=== PATIENT | female | born 1995 | race Caucasian/White ===

== ENCOUNTER 2019-05-29 19:42 | Emergency (ER) | payer MEDICAID, SELFPAY ==
--- NOTE | ~2019-05-29 | CT_ITS ---
EXAMINATION: CT abdomen pelvis w con EXAM DATE: 05/29/2019 20:35 INDICATION: Right upper quadrant pain, right flank pain. TECHNIQUE: Spiral CT of the abdomen and pelvis was performed following intravenous injection of 100 m L Omnipaque 350. Axial, coronal and sagittal images were reviewed. The dose-length product (DLP) fo r this examination was 426.68 mGy-cm. The exposure was tailored according to patient size (auto mA e xposure control), and iterative reconstruction (ASIR) was used as additional dose reduction technique . Comparison is made to prior examination from 12/10/2018. FINDINGS: The liver, spleen, adrenal glands and pancreas are unremarkable. Gallbladder is unremarkab le. No biliary obstruction. Portal and splenic veins are patent. Kidneys enhance symmetrically. T here is no hydronephrosis. The prostate is unremarkable. The bladder is unremarkable. There is no retroperitoneal or pelvic lymphadenopathy. The appendix is not positively visualized. There is no pericecal inflammatory change to suggest appe ndicitis. The stomach and small bowel are unremarkable. There is expected amount of colonic stool. No free intraperitoneal gas. The heart is normal in size. There are no pericardial or pleural e ffusions. The lung bases are unremarkable. The bones are unremarkable. IMPRESSION: 1. No acute intra-abdominal findings. Reviewed, dictated and finalized at location A.
[2019-05-29 19:50] VITALS: BP 137/82; PULSE 80; RESP 18; O2SAT 97
[2019-05-29 20:05] LABS: Basophils Percent Auto 0.3 % (0.2-1.2); Eosinophils Absolute Auto 0.1 K/mm3 (0-0.3); Eosinophils Percent Auto 0.5 % (0-4.4); Hematocrit 45.5 % (37.0-47.0); Hemoglobin 15.1 g/dL (12.0-15.0); Immature Granulocyte Absolute 0.03 K/mm3 (0.00-0.031); Immature Granulocyte Percent A 0.3 % (0-0.5); Lymphocytes Absolute Auto 3.85 K/mm3 (0.9-3.2); Mean Corpuscular HGB Conc 33.2 g/dl (32-36); Mean Corpuscular Hemoglobin 30.7 pg (26-34); Mean Corpuscular Volume 92.5 fl (80-100); Mean Platelet Volume 10.4 fl (7.4-10.4); Monocytes Absolute Auto 0.9 K/mm3 (0.1-0.6); Neutrophils Absolute Auto 6.4 K/mm3 (1.3-6.7); Neutrophils Percent Auto 56.9 % (45.5-73.1); Platelet Count Result 317 k/mm3 (150-375); Red Blood Count 4.92 M/mm3 (4.2-5.4); Red Cell Distribution Width 12.5 % (11.5-14.5); White Blood Count 11.3 K/mm3 (4.5-10.0)
[2019-05-29 20:16] LABS: Alanine Aminotransferase 15 U/L (4-35); Albumin Level 5.2 g/dL (3.5-5.1); Alkaline Phosphatase 60 U/L (38-126); Aspartate Amino Transferase 25 U/L (14-36); Bilirubin,Total 0.7 mg/dL (0.2-1.3); Blood Urea Nitrogen 12 mg/dL (7-17); Calcium 9.8 mg/dL (8.4-10.2); Carbon Dioxide 28 mmol/L (22-30); Chloride 103 mmol/L (98-107); Estimated CRCL calculation 99 ml/min; Estimated Glomerular Filt Rate > 60; Glucose 107 mg/dL (65-105); Lipase 67 U/L (23-300); Potassium 4.2 mmol/L (3.4-5.0); Sodium 141 mmol/L (137-145)
--- NOTE | 2019-05-29 20:25 | ED.ABDPAIN ---
HPI - Abdominal Pain General Chief Complaint: Abdominal Pain Stated Complaint: abd pain/gall stones Time Seen by Provider: 05/29/19 19:55 Source: patient Mode of arrival: ambulatory Limitations: no limitations History of Present Illness HPI narrative: 24 yo female who presents with c/o right upper abdominal pain. Patient reports she has had constant pain in right upper abdomen for 8 hours. Her pain is associated with nausea and diarrhea. She has hot flashes with pain but denies fever. She also denies vomiting . She states she tried some of her grandmother's prescribed narcotic pain medication without relief. She reports experiencing similar pain this past fall and she was told that she had gallstones. She reports having reoccurring pain over that past few weeks. She has been unable to obtain follow up due to insurance issues. MD elicited complaint: abdominal pain Pertinent past history: gastritis Onset (ago): week(s) Pain Consistency: intermittent Location: RUQ Severity: severe Pain scale (0-10): 10 Radiation: R flank Migration to: R flank Relieving factors: eating Associated symptoms: nausea, diarrhea and fever Treatments prior to arrival: prescription analgesics Related Data Home Medications Medication Instructions Recorded Confirmed docusate sodium [DOK] PO 05/29/19 tramadol mg 05/29/19 Allergies Allergy/AdvReac Type Severity Reaction Status Date / Time amoxicillin Allergy Unknown Swelling Verified 05/29/19 19:56 of Lip/Tongue/Throat clavulanic acid Allergy Unknown Unknown Verified 05/29/19 19:56 kiwi Allergy Unknown Anaphylaxis Verified 05/29/19 19:56 Review of Systems Review of Systems: All systems reviewed & are unremarkable except as noted in HPI and below Constitutional: Constitutional: Denies chills, Reports excessive sweating and Denies fever(s) Gastrointestinal: Gastrointestinal: Reports abdominal pain, Denies constipation, Reports diarrhea, Reports nausea and Denies vomiting Genitourinary: Genitourinary: Denies hematuria, Reports nocturia, Reports urinary hesitancy and Reports urinary urgency Musculoskeletal: Musculoskeletal: Reports back pain [facility] Surgical History Surgical History (Updated 05/29/19 @ 20:33 by Sweta Garcia MD) Hx of appendectomy Hx of tonsillectomy Social History Social History Gender identity (if verbalized by the patient): Female Comments surgical history includes bilateral orchiectomies Exam Const: General: alert Orientation/consciousness: patient oriented x3 Eyes: Pupils: Equal, round and reactive pupils present EOM: EOMs intact bilaterally Chest: Chest palpation & inspection: normal inspection of the chest Resp: Effort & Inspection: normal respiratory effort, no retractions and no use of accessory muscles Auscultation: clear to auscultation bilaterally Cardio: Rate: regular rate Rhythm: regular rhythm Heart sounds: no murmurs GI: GI Palp: Yes Soft to palpation, Yes Tenderness to palpation present (GI) (RUQ, epigastric), No Guarding due to palpation present (GI), No Rigid due to palpation and No Hernia present : General: Yes CVA tenderness on the right Skin: General skin exam: normal color Rashes: no rashes Neuro: General: patient oriented x3 and moves all extremities Course Reevaluation(s) Reevaluation #1: Patient reports she has some improvement with pain. I have discussed CT and labs . She does have gallstone on bedside ultrasound of gallbladder. Date: 05/29/19 Time: 21:25 Reevaluation #2: Patient states her pain is much improved after bentyl and toradol. Date: 05/29/19 Time: 22:32 Consultations Consultation #1: I discussed case with Dr. Mora of general surgery. He agrees to follow up with patient and help to further evaluation gallbladder disease. He does not recommend antibiotics at this time. Date: 05/29/19 Time: 22:31 Vital Signs Vital signs: Vital Signs Pulse Rate 80 05/29/19 19:50 Resp
[2019-05-29 20:32] LABS: Add Urine Microscopic? YES; Appearance Urine Clear (Clear); Bilirubin Urine Negative (Negative); Blood Urine 1+ (Negative); Color Urine Yellow (Yellow); Glucose Urine UA Negative (Negative); Ketones Urine Trace mg/dL (Negative); Leukocyte Esterase Ur Negative LEU/UL (Negative); Mucus Urine Rare /lpf; Nitrate Urine Negative (Negative); Protein Urine Negative (Negative); Specific Grav Ur 1.021 (1.001-1.035); Squamous Epithelial Cell Urine Moderate /hpf (Few); WBC Urine 0-3 /hpf
[2019-05-29] MEDS: LACTATED RINGERS 1,000 ML 999 ML IV CONT (20:43)
[2019-05-29] MEDS: ONDANSETRON INJ 4 MG/2 ML VIAL IV PUSH (20:44)
[2019-05-29] MEDS: HYDROMORPHONE HCL 1 MG/ML INJ IV PUSH (20:45)
[2019-05-29 20:54] VITALS: BP 115/80; PULSE 66; RESP 16; O2SAT 100
[2019-05-29] MEDS: KETOROLAC 30 MG/ML VIAL (*BKC) IV PUSH (21:45)
[2019-05-29] MEDS: DICYCLOMINE HCL INJ 20 MG/2 ML VIAL IM (21:46)
[2019-05-29 22:28] VITALS: BP 122/74; PULSE 82; RESP 18; O2SAT 98
[2019-05-29 22:58] VITALS: BP 130/82; PULSE 82; RESP 18; TEMP 36.8; O2SAT 98
== END 2019-05-29 23:01 | disposition home or self-care (01) ==
PROVIDERS: Emergency Medicine; Emergency Provider General Practice
DX: K80.20 Calculus of gallbladder without cholecystitis without obstruction (principal)
CPT/HCPCS: 36415; 74177; 80053; 81001; 81025; 83690; 85025; 96361; 96372; 96374; 96375; 99284; J0500; J1170; J1885; J2405; J7120; Q9967

== ENCOUNTER 2019-06-07 07:50 | Outpatient (CLI) | payer MEDICAID, SELFPAY ==
--- NOTE | ~2019-06-07 | NM_ITS ---
EXAMINATION: NM hepatobiliary w pharm DATE: 06/07/2019 10:44 INDICATION: Right upper quadrant abdominal pain COMPARISON: None. TECHNIQUE: 5.15 mCi Tc-99m mebrofenin (Choletec) was administered intravenously. Scintigraphic image s of the abdomen were obtained for one hour. 1.5 mcg sincalide (Kinevac) was administered by slow int ravenous infusion, and imaging was continued for 30 minutes. Gallbladder ejection fraction was calcul ated by the technologist. FINDINGS: There is normal clearance of radiotracer from the blood pool. There is homogeneous tracer uptake by t he liver. Activity progresses to the gallbladder and bowel. The gallbladder ejection fraction (GBEF) is 57% (normal 10-90%, but most patient with gallbladder dysfunction have GBEF < 35% which does over lap with the normal range). IMPRESSION: 1. Normal hepatobiliary scan. Reviewed, dictated and finalized at location A.
== END 2019-06-07 07:51 | disposition home or self-care (01) ==
PROVIDERS: Visit Provider Surgery
DX: R10.11 Right upper quadrant pain (principal)
CPT/HCPCS: 76705; 78227; A9537; J2805

== ENCOUNTER 2019-06-07 11:58 | Outpatient (CLI) | payer MEDICAID, SELFPAY ==
--- NOTE | ~2019-06-07 | US_ITS ---
EXAMINATION: US right upper quadrant DATE: 06/07/2019 12:28 INDICATION: Right upper quadrant pain TECHNIQUE: Multiple grayscale and Doppler ultrasound images of the abdomen were obtained. COMPARISON: 09/07/2016 FINDINGS: The head and and body of the pancreas are normal. The pancreatic tail is obscured by bowel gas. The liver is normal with normal echogenicity and echotexture. No surface nodularity. Normal hepa topetal flow in the main portal vein. Stones are present in the nondistended gallbladder. There is no gallbladder wall thickening or pericholecystic fluid. The normal common bile duct measures 3 mm. The re was no sonographic Lassiter sign. IMPRESSION: 1. Cholelithiasis without additional findings of acute cholecystitis. Reviewed, dictated and finalized at location A.
== END 2019-06-07 11:59 | disposition home or self-care (01) ==
PROVIDERS: Visit Provider Surgery
DX: R19.01 Right upper quadrant abdominal swelling, mass and lump (principal); K80.20 Calculus of gallbladder without cholecystitis without obstruction
CPT/HCPCS: 76705

== ENCOUNTER 2019-06-11 00:23 | Day surgery (SDC) | payer MEDICAID, OTHER, SELFPAY ==
[2019-06-08 16:00] VITALS: BMI 28.0
[2019-06-11] VITALS (11 sets, daily range): BP systolic 98–132; BP diastolic 67–93; PULSE 11–86; RESP 12–20; TEMP 36.2–36.5; O2SAT 98–100
--- NOTE | ~2019-06-11 | XR_ITS ---
EXAMINATION: XR cholangiogram surg 1st inj DATE: 06/11/2019 08:41 INDICATION: Cholelithiasis. TECHNIQUE: 15 fluoroscopic images of the right upper quadrant were obtained during intraoperative cho langiography performed by the surgeon. I was not present in the operating room. Fluoroscopy exposure time was 22 seconds. COMPARISON: CT abdomen and pelvis 05/29/2019 FINDINGS: There is a catheter in the cystic duct. The biliary tree is normal in caliber. No choledoch olithiasis. Contrast passes to the duodenum. IMPRESSION: 1. Normal intraoperative cholangiogram. Reviewed, dictated and finalized at location A.
[2019-06-11] MEDS: LACTATED RINGERS 1,000 ML 30 ML IV CONT ×3 (06:55→10:31)
--- NOTE | 2019-06-11 07:15 | WPDHPUPDATE1 ---
History and Physical Update Update Date/Time: 06/11/19 07:15 History and Physical has been reviewed, including an updated exam of the patient. There are NO changes in the patient's condition. Risks, benefits, and alternatives of a laparoscopic cholecystectomy, possible intra-operative cholangiogram, possible open cholecystectomy have been discussed and questions answered. Patient agrees to proceed with procedure.
--- NOTE | 2019-06-11 07:19 | WPDANESEPPF ---
Anes - Initial Pre Proc Eval Procedure: Operation Date: 06/11/19 07:30 Proposed Procedures p Laparoscopic Cholecystectomy With Intraoperative Cholangiogram, Possible Open - Jb Mora MD Date/Time: 06/11/19 07:19 Surgeon: Jb Mora MD Pre Op Diagnosis: Gall Stones Patient Data Age: 24 Gender: F Height: 5 ft 6 in Weight: 78.05 kg Allergies Allergy/AdvReac Type Severity Reaction Status Date / Time amoxicillin Allergy Unknown Swelling Verified 06/08/19 16:23 of Lip/Tongue/Throat clavulanic acid Allergy Unknown Unknown Verified 06/08/19 16:23 kiwi Allergy Unknown Anaphylaxis Verified 06/08/19 16:23 Home Medications Medication Instructions Recorded Confirmed Type famotidine [Pepcid] 20 mg PO DAILY #20 tablet 05/29/19 06/08/19 Rx dicyclomine 10 mg PO BID 06/08/19 06/08/19 History Laboratory Tests 06/11/19 06:47 Sodium Pending Potassium Pending Chloride Pending Carbon Dioxide Pending BUN Pending Creatinine Pending Estim Creat Clear Calc Pending Estimated GFR Pending Glucose Pending Calcium Pending Total Bilirubin Pending Direct Bilirubin Pending AST Pending ALT Pending Alkaline Phosphatase Pending Total Protein Pending Albumin Pending Amylase Pending Lipase Pending Patient hx anesthesia problems: post op nausea/vomiting Family hx anesthesia problems: none PMFSH Past Medical History Medical History Asthma Depression Kidney stones POTS (postural orthostatic tachycardia syndrome) Surgical History Surgical History History of ear surgery History of esophagogastroduodenoscopy (EGD) History of evacuation of hematoma Hx of appendectomy Hx of tonsillectomy Status post radical unilateral orchiectomy bilateral Family History Family History Father Diabetes mellitus Mother Heart disease Hypoglycemia Lupus Sibling Hypoglycemia Heart disease S/P cholecystectomy Unknown Diabetes mellitus Heart disease Hypertension Cerebrovascular accident Cancer Nervous disorder Allergic Social History Social History Smoking status: Never smoker Alcohol intake: never Additional occupation/education comments: marketing Gender identity (if verbalized by the patient): Transgender Female Anes - Eval Final PreProcedure Day of Procedure 06/11/19 07:19 Patient weight: overweight Heart: regular rate and rhythm Lungs: clear to auscultation Airway: Mallampati scale class 1 Neurological: alert and oriented Last oral intake: >/= 8 hours ASA classification: III Emergent: no Anesthetic plan: proceed Anesthesia type and monitoring: general ETT and standard monitoring Informed Consent: The patient's anesthetic plan and its attendant risks and benefits were discussed with the patient/family/POA. Questions were solicited and answers provided to the satisfaction of the patient/family/POA.
[2019-06-11 07:22] LABS: Alanine Aminotransferase 23 U/L (4-35); Albumin Level 4.6 g/dL (3.5-5.1); Alkaline Phosphatase 60 U/L (38-126); Amylase 67 U/L (30-110); Aspartate Amino Transferase 18 U/L (14-36); Bilirubin,Total 1.1 mg/dL (0.2-1.3); Blood Urea Nitrogen 10 mg/dL (7-17); Calcium 9.2 mg/dL (8.4-10.2); Carbon Dioxide 29 mmol/L (22-30); Chloride 103 mmol/L (98-107); Estimated CRCL calculation 98 ml/min; Estimated Glomerular Filt Rate > 60; Glucose 96 mg/dL (65-105); Lipase 62 U/L (23-300); Potassium 3.8 mmol/L (3.4-5.0); Sodium 140 mmol/L (137-145)
[2019-06-11] MEDS: SCOPOLAMINE 1.5 MG PATCH TRANSDERM (07:30)
[2019-06-11] MEDS: CLINDAMYCIN 900 MG/NS 50 ML 900 MG/50 ML PIGGYBACK 50 MG IVPB (07:36)
[2019-06-11] MEDS: BUPIVACAINE/EPINEPHRINE 0.5% 30 ML VIAL INFILTRATE (07:36)
--- NOTE | 2019-06-11 09:18 | PM.PROC ---
Procedure Note - Detailed Date of procedure: 06/11/19 Pre-op diagnosis: Gall Stones Chronic cholecystitis with cholelithiasis Post-op diagnosis: same Procedure performed: Laparoscopic cholecystectomy with intraoperative cholangiogram. Description of procedure: Procedure Details: Patient was seen preoperatively in the holding area and risks, benefits and alternatives confirmed. Patient was taken to the operating room and general anesthesia was induced. A time out was then preformed with the surgery team confirming patient and site of surgery. The abdomen was prepped and draped in the usual sterile fashion. Incision was made just below the umbilicus. Two stay sutures of O- Vicryl were used to elevate the mid-line fascia beneath the umbilicus and a small incision was made under direct vision. The peritoneum was entered. The 12 mm Gr cannula was introduced under direct vision. First under low flow and then under high flow the abdomen was insufflated with carbon dioxide never exceeding a pressure of 14. Three 5 mm trocars were then introduced under direct vision. The following trocars were introduced under direct vision: a 5 mm in the epigastrium and two 5 mm trocars along the right costal margin. There were some omental adhesions to the gallbladder. These were taken down with sharp dissection without difficulty. The gall bladder was grasped and the cystic duct and artery were dissected free and clipped with an 5 mm endo-clip mold changer. A small hole was made in the cystic duct with endoshears and a cholagio-cath introduced. A cholangiogram was obtained revealing free flow into the cystic duct, common bile duct, common hepatic, right and left hepatic ducts with free flow into the duodenum with no filling defects in the intra nor extrahepatic biliary tree and no dilation. It was noted that the ampulla of Vater appeared to be at more at the junction of the 3rd and 4th portion of the duodenum rather than in the 2nd portion of the duodenum. See radiology report. The catheter was removed and the cystic duct was clipped with a 5 mm endoclip-mold changer. The cystic duct was then transected. The cystic artery was also transected at this point. The gall bladder was removed using electrocautery and then removed using a large 10 mm grasper via the umbilical incision. The trocars were removed visualizing hemostasis and the remaining gas evacuated. The large trocar site at the umbilicus was closed with an 0 vicryl figure of 8 suture. The 2 stay sutures mentioned above on either side of the fascia were also tied together to help approximate this midline fascia. Further local anesthetic was placed into each incision for postop pain control. The skin incisions were closed with a subcuticular of 4-0 Monocryl. Surgical glue then was applied to all the incisions. Patient tolerated the procedure well was taken to the recovery room in good condition. Anesthesia: GETA Surgeon: Jb Mora MD Gas Furnace Installer: VICTOR HUGO Leonardo, OR 1st assist Estimated blood loss (mL): 7 Drains: No Packing: No Pathology: yes (The gallbladder) Complications: No immediate complications Condition: stable Disposition: PACU
--- NOTE | 2019-06-11 09:21 | SUR.OPER ---
ebl:[id number]
[2019-06-11] MEDS: ONDANSETRON INJ 4 MG/2 ML VIAL IV PUSH (09:51)
--- NOTE | 2019-06-11 11:23 | SUR.PHASEII ---
1006- SCOPOLAMINE PATCH IN PLACE
--- NOTE | 2019-06-11 12:55 | SUR.PHASEII ---
1225 Pt states she is no longer nauseous; and ready to go home
== END 2019-06-11 12:46 | disposition home or self-care (01) ==
PROVIDERS: Visit Provider Surgery
PROC: 0FT44ZZ Resection of Gallbladder, Percutaneous Endoscopic Approach (ICD-10-PCS; CPT 47562; principal; 2019-06-11 07:30)
DX: K80.10 Calculus of gallbladder with chronic cholecystitis without obstruction (principal); J45.909 Unspecified asthma, uncomplicated; I49.8 Other specified cardiac arrhythmias; F32.9 Major depressive disorder, single episode, unspecified
CPT/HCPCS: 47562; 36415; 74300; 80053; 82150; 82248; 83690; 88304; A9270; J0131; J1200; J2001; J2250; J2405; J2704; J3010; J7120; Q9966

== ENCOUNTER 2019-06-22 12:50 | Outpatient (CLI) | payer MEDICAID, SELFPAY ==
[2019-06-22 13:45] LABS: Alanine Aminotransferase 108 U/L (4-35); Albumin Level 4.8 g/dL (3.5-5.1); Alkaline Phosphatase 79 U/L (38-126); Aspartate Amino Transferase 66 U/L (14-36); Bilirubin,Total 0.6 mg/dL (0.2-1.3); Blood Urea Nitrogen 10 mg/dL (7-17); CRP 1.7 mg/dL (<1.0); Calcium 9.4 mg/dL (8.4-10.2); Carbon Dioxide 30 mmol/L (22-30); Chloride 101 mmol/L (98-107); Estimated Glomerular Filt Rate > 60; Glucose 98 mg/dL (65-105); Lipase 62 U/L (23-300); Potassium 4.4 mmol/L (3.4-5.0); Sodium 139 mmol/L (137-145)
== END 2019-06-22 12:51 | disposition home or self-care (01) ==
PROVIDERS: Visit Provider Surgery
DX: K21.9 Gastro-esophageal reflux disease without esophagitis (principal)
CPT/HCPCS: 36415; 80053; 83690; 86140

== ENCOUNTER 2019-06-25 13:48 | Outpatient (CLI) | payer MEDICAID, SELFPAY ==
[2019-06-25 14:05] LABS: Basophils Absolute Auto 0.1 K/mm3 (0.0-0.1); Basophils Percent Auto 0.8 % (0.2-1.2); Eosinophils Absolute Auto 0.3 K/mm3 (0-0.3); Hematocrit 43.9 % (37.0-47.0); Hemoglobin 14.6 g/dL (12.0-15.0); Immature Granulocyte Absolute 0.02 K/mm3 (0.00-0.031); Immature Granulocyte Percent A 0.2 % (0-0.5); Lymphocytes Percent Auto 36.2 % (18.3-44.2); Mean Corpuscular HGB Conc 33.3 g/dl (32-36); Mean Corpuscular Hemoglobin 30.7 pg (26-34); Mean Corpuscular Volume 92.4 fl (80-100); Monocytes Absolute Auto 0.6 K/mm3 (0.1-0.6); Monocytes Percent Auto 6.1 % (2.6-8.5); Neutrophils Absolute Auto 4.9 K/mm3 (1.3-6.7); Neutrophils Percent Auto 53.7 % (45.5-73.1); Platelet Count Result 347 k/mm3 (150-375); Red Blood Count 4.75 M/mm3 (4.2-5.4); Red Cell Distribution Width 12.4 % (11.5-14.5); White Blood Count 9.1 K/mm3 (4.5-10.0)
== END 2019-06-25 13:49 | disposition home or self-care (01) ==
PROVIDERS: Visit Provider Surgery
DX: K80.64 Calculus of gallbladder and bile duct with chronic cholecystitis without obstruction (principal)
CPT/HCPCS: 36415; 85025

== ENCOUNTER 2019-12-12 10:47 | Emergency (ER) | payer BC, SELFPAY ==
[2019-12-12] VITALS (8 sets, daily range): BP systolic 102; BP diastolic 73; PULSE 68–100; RESP 13–20; O2SAT 97–100
--- NOTE | ~2019-12-12 | XR_ITS ---
EXAMINATION: XR chest 1V portable DATE: 12/12/2019 11:29 INDICATION: Shortness of breath. COVID 19 positive. TECHNIQUE: frontal view of the chest was obtained. COMPARISON: Chest radiograph dated 10/05/2007 FINDINGS: The lungs remain clear with no focal airspace opacities, pulmonary edema, pleural effusion or pneumot horax. The cardiomediastinal silhouette is normal. Visualized bones and soft tissues are unremarkable . IMPRESSION: 1. No acute cardiopulmonary disease. Reviewed, dictated and finalized at location B.
--- NOTE | 2019-12-12 11:00 | ECG_ITS ---
Measurements Intervals [place] Rate: 75 P: 58 DE: 139 QRS: 60 QRSD: 90 T: 45 QT: 356 QTc: 399 Interpretive Statements SINUS RHYTHM BASELINE ARTIFACT- I, II, III, AVR, AVL, AVF, V1-V2 NORMAL ECG Electronically Signed On 12-12-2019 12:52:04 CDT by Raulito Valdes D.O.
--- NOTE | 2019-12-12 11:17 | ED.GENADULT ---
HPI - General Adult General Chief complaint: Shortness of Breath/Dyspnea Stated complaint: COVID+, feeling SOB Time Seen by Provider: 12/12/19 11:16 Source: patient Mode of arrival: ambulatory Limitations: no limitations History of Present Illness HPI narrative: Patient is 24 years old white female with a recent diagnosis of COVID-19 1 week ago presents to the ED complaining that her symptoms are not improving, still feeling weak, tired, dizzy, shortness of breath on exertion, chest pressure going to her neck. Patient reports that her fever and chills are resolved few days ago. History of asthma on albuterol. Patient denies smoking, drinking or using drugs. Patient lives with her grandma who is Covid negative Related Data Allergies Allergy/AdvReac Type Severity Reaction Status Date / Time amoxicillin Allergy Unknown Swelling Verified 12/12/19 11:25 of Lip/Tongue/Throat clavulanic acid Allergy Unknown Unknown Verified 12/12/19 11:25 kiwi Allergy Unknown Anaphylaxis Verified 12/12/19 11:25 Review of Systems Review of Systems: Narrative: CONSTITUTIONAL: Denies fever, chills, or sweats. Generalized weakness EYES: Denies visual changes, redness, or discharge. ENT: Denies rhinorrhea, congestion, sore throat, or otalgia. CARDIOVASCULAR: Denies chest pain, palpitations, or edema. RESPIRATORY: Denies cough or dyspnea. GASTROINTESTINAL: Denies abdominal pain, nausea, vomiting, or diarrhea. GENITOURINARY: Denies dysuria or hematuria. SKIN: Denies rash or itching. MUSCULOSKELETAL: Generalized body aches, general weakness NEUROLOGIC: Weakness PSYCHIATRIC: Denies anxiety or depression. [facility] Past Medical History Medical History (Updated 12/12/19 @ 12:41 by Jermaine Bacon MD) Asthma Depression Kidney stones POTS (postural orthostatic tachycardia syndrome) Surgical History Surgical History History of ear surgery History of esophagogastroduodenoscopy (EGD) History of evacuation of hematoma Hx of appendectomy Hx of tonsillectomy Status post radical unilateral orchiectomy bilateral Family History Family History Father Diabetes mellitus Mother Heart disease Hypoglycemia Lupus Sibling Hypoglycemia Heart disease S/P cholecystectomy Unknown Diabetes mellitus Heart disease Hypertension Cerebrovascular accident Cancer Nervous disorder Allergic Social History Social History Smoking status: Never smoker Alcohol intake: never Additional occupation/education comments: marketing Gender identity (if verbalized by the patient): Transgender Female Exam Narrative: Exam Narrative: General appearance: Well-developed, well-nourished Skin: Normal color Head: Normocephalic, nontraumatic Eyes: Clear conjunctiva ENT: Oropharynx normal, ears normal, nose normal Neck: Supple, nontender Chest and respiratory: Airway patent, no respiratory distress, no accessory muscle use Heart: Regular rate/rhythm Abdomen: Soft, nontender, no organomegaly, quiet bowel sounds Vascular: Normal peripheral pulses, normal capillary refill. Musculoskeletal: Normal range of motion, nontender back Neurologic: Alert and oriented ?3, VOCATIONAL TRAINING INSTRUCTOR is normal as tested, no gross motor deficit Course Course Emergency Course: Stable Medical Decision Making MDM Narrative Medical decision making narrative: Patient presents with cough and symptoms, Recent diagnosis 1 week ago, Patient oxygen level on room air is 98%, Chest x-ray showed no infiltration or signs of pneumonia. EKG on arrival showed normal si
[2019-12-12 11:25] LABS: Basophils Percent Auto 0.2 % (0.2-1.2); Hematocrit 40.7 % (37.0-47.0); Hemoglobin 13.9 g/dL (12.0-15.0); Immature Granulocyte Absolute 0.01 K/mm3 (0.00-0.031); Immature Granulocyte Percent A 0.2 % (0-0.5); Lymphocytes Absolute Auto 1.23 K/mm3 (0.9-3.2); Mean Corpuscular HGB Conc 34.2 g/dl (32-36); Mean Corpuscular Hemoglobin 31.3 pg (26-34); Mean Corpuscular Volume 91.7 fl (80-100); Mean Platelet Volume 10.1 fl (7.4-10.4); Monocytes Absolute Auto 0.5 K/mm3 (0.1-0.6); Neutrophils Absolute Auto 3.1 K/mm3 (1.3-6.7); Neutrophils Percent Auto 63.6 % (45.5-73.1); Platelet Count Result 204 k/mm3 (150-375); Red Blood Count 4.44 M/mm3 (4.2-5.4); Red Cell Distribution Width 12.2 % (11.5-14.5); White Blood Count 4.9 K/mm3 (4.5-10.0)
--- NOTE | 2019-12-12 11:25 | PC.NURSE ---
Pt to x-ray at this time.
[2019-12-12 11:39] LABS: Anion Gap 10 mmol/L (8-16); Blood Urea Nitrogen 8 mg/dL (7-17); Calcium 8.9 mg/dL (8.4-10.2); Carbon Dioxide 25 mmol/L (22-30); Chloride 104 mmol/L (98-107); Estimated Glomerular Filt Rate > 60; Glucose 112 mg/dL (65-105); Potassium 3.9 mmol/L (3.4-5.0); Sodium 139 mmol/L (137-145)
== END 2019-12-12 12:53 | disposition home or self-care (01) ==
PROVIDERS: Emergency Medicine; Emergency Provider Emergency Medicine
DX: U07.1 COVID-19 (principal); J45.909 Unspecified asthma, uncomplicated; F32.9 Major depressive disorder, single episode, unspecified; Z87.442 Personal history of urinary calculi
CPT/HCPCS: 36415; 71045; 80048; 85025; 93005; 99284